=== PATIENT | female | born 1955 | race Caucasian/White ===

== ENCOUNTER 2022-02-15 20:43 | Emergency (ER) | payer BC, OTHER ==
[~2022-02-15] VITALS: Ht 165.1 cm; Wt 45.4 kg
[2022-02-15 21:34] LABS: Eosinophils # (auto) 0 10 ^3/uL (0-0.8); Lymphocytes # (auto) 0.2 10 ^3/uL (0.4-5.4); Monocytes # (auto) 0.2 10 ^3/uL (0-1.3); Neutrophils # (auto) 2.8 10 ^3/uL (1.6-8.6)
[2022-02-15 21:37] LABS: Basophils # (auto) 0 10 ^3/uL (0-0.2); Basophils % (auto) 1.2 % (0.0-2.0); Eosinophils % (auto) 0.8 % (0.0-7.0); Hematocrit 23.6 % (36.0-46.0); Hemoglobin 7.6 g/dL (12.2-16.2); Lymphocytes % (auto) 7.5 % (10.0-50.0); Mean Corpuscular Hemoglobin 26.3 pg (28.0-32.0); Mean Corpuscular Hgb Conc. 32.4 g/dL (32.0-36.0); Mean Corpuscular Volume 81.1 fL (80.0-100.0); Monocytes % (auto) 6.2 % (0.0-12.0); Neutrophils % (auto) 84.3 % (37.0-80.0); White Blood Cell 3.3 10^3/uL (4.4-10.8)
[2022-02-15 21:54] LABS: Red Cell Distribution Width 25.1 % (11.8-14.3)
[2022-02-15 21:57] LABS: Albumin 2.9 g/dL (3.4-5.0); BUN/Creatinine Ratio 30.4; Calcium 8.3 mg/dL (8.5-10.1); Magnesium 1.9 mg/dL (1.6-2.6)
[2022-02-15 21:59] LABS: Bilirubin, Total 0.1 mg/dL (0.2-1.0)
[2022-02-16 01:35] LABS: Urine Bacteria NONE SEEN /hpf (None Seen); Urine Blood Negative /uL (Negative); Urine Specific Gravity 1.016 (1.001-1.035); Urine WBC 2 /hpf (0 - 5)
[2022-02-16] MEDS ORDERED: ACETAMINOPHEN 325 MG TAB PO ONE (05:00)
[2022-02-16] MEDS ORDERED: ONDA-144 PO (07:25)
[2022-02-16] MEDS ORDERED: PERCOT PO (07:25)
[2022-02-16 07:26] VITALS: BP 104/52
== END 2022-02-16 07:35 | disposition home or self-care (01) ==
LOC: EDBD 20:43 → ER 20:43
DX: S33.5XXA Sprain of ligaments of lumbar spine, initial encounter (principal); R11.2 Nausea with vomiting, unspecified; Z90.710 Acquired absence of both cervix and uterus; Z88.1 Allergy status to other antibiotic agents; Z88.2 Allergy status to sulfonamides; X58.XXXA Exposure to other specified factors, initial encounter; Y93.89 Activity, other specified; Y92.89 Other specified places as the place of occurrence of the external cause; Y99.8 Other external cause status
CPT/HCPCS: 36415; 71045; 74176; 80053; 81001; 83690; 83735; 84484; 85025; 93005

== ENCOUNTER 2022-02-19 05:03 | Inpatient (IN) | payer BC, MEDICARE ==
[~2022-02-19] VITALS: Ht 165.1 cm; Wt 45.0 kg
[~2022-02-19 05:03] MED LIST: ONDA-144 PO; PERCOT PO
[2022-02-19] MEDS ORDERED: SODIUM CHLORIDE 0.9% 1,000 ML IV ONE (07:15)
[2022-02-19] MEDS ORDERED: MORPHINE SULFATE 4 MG/ML SYR/VIAL IV ONE (07:15)
[2022-02-19] MEDS: PROMETHAZINE HCL 25 MG/ML 1ML IV PRN (07:48)
[2022-02-19 08:04] LABS: Basophils # (auto) 0 10 ^3/uL (0-0.2); Eosinophils # (auto) 0 10 ^3/uL (0-0.8); Hemoglobin 8.6 g/dL (12.2-16.2); Lymphocytes # (auto) 0.3 10 ^3/uL (0.4-5.4); Nucleated Red Blood Cells % 0.1 %
[2022-02-19 08:06] LABS: Basophils % (auto) 0.6 % (0.0-2.0); Eosinophils % (auto) 0.2 % (0.0-7.0); Hematocrit 27.1 % (36.0-46.0); Lymphocytes % (auto) 4.6 % (10.0-50.0); Mean Corpuscular Hemoglobin 26.4 pg (28.0-32.0); Mean Corpuscular Hgb Conc. 31.7 g/dL (32.0-36.0); Mean Corpuscular Volume 83.1 fL (80.0-100.0); Monocytes # (auto) 0.3 10 ^3/uL (0-1.3); Monocytes % (auto) 4.8 % (0.0-12.0); Neutrophils # (auto) 5.6 10 ^3/uL (1.6-8.6); Neutrophils % (auto) 89.8 % (37.0-80.0); Red Blood Cells 3.26 10^6/uL (4.0-5.20); White Blood Cell 6.2 10^3/uL (4.4-10.8)
[2022-02-19 08:11] LABS: Red Cell Distribution Width 25.4 % (11.8-14.3)
[2022-02-19 08:24] LABS: Albumin 3.2 g/dL (3.4-5.0); BUN/Creatinine Ratio 35.2; Calcium 8.8 mg/dL (8.5-10.1); Potassium 4.4 mmol/L (3.5-5.1)
[2022-02-19 08:27] LABS: Bilirubin, Total 0.2 mg/dL (0.2-1.0); Total Protein 6.1 g/dL (6.4-8.2)
[2022-02-19 10:22] LABS: Urine Bacteria NONE SEEN /hpf (None Seen); Urine Blood Negative /uL (Negative); Urine Specific Gravity 1.014 (1.001-1.035); Urine WBC 1 /hpf (0 - 5)
[2022-02-19] MEDS ORDERED: NITROGLYCERIN 0.4 MG SL TAB SL PRN (10:30)
[2022-02-19] MEDS ORDERED: MORPHINE SULFATE INJECTION 2 MG/ML SYRG IV PRN ×2 (10:30→13:45)
[2022-02-19] MEDS ORDERED: LACTULOSE 20Gm/30ML SOLN PO PRN (13:45)
[2022-02-19] MEDS ORDERED: HYDROcodone-ACET 5/325MG TAB PO ONE (13:45)
[2022-02-19] MEDS ORDERED: hydrALAZINE HCL 20 MG/ML VL IV PRN (13:45)
[2022-02-19] MEDS ORDERED: AZTREONAM 1GM INJ 1 GM in D5W 5% 50 ML IV ONE (13:45)
[2022-02-19] MEDS ORDERED: metroNIDAZOLE 500MG/100ML 100 ML IV ONE (13:45)
[2022-02-19] MEDS ORDERED: IPRATROPIUM BROM 0.5 MG/2.5ML INH SOL NEB ONE (13:45)
[2022-02-19] MEDS ORDERED: ACETAMINOPHEN 325 MG TAB PO PRN (13:45)
[2022-02-19] MEDS ORDERED: LORazepam 0.5 MG TAB PO PRN (13:45)
[2022-02-19] MEDS ORDERED: FAMOTIDINE (10MG/ML) 2ML VL IV ONE (13:45)
[2022-02-19] MEDS ORDERED: DOCUSATE SOD 100 MG CAP PO PRN (13:45)
[2022-02-19] MEDS ORDERED: IPRATROPIUM BROM 0.5 MG/2.5ML INH SOL NEB SCH ×2 (14:00→22:00)
[2022-02-19] MEDS: SODIUM CHLORIDE 0.9% 1,000 ML IV SCH (14:12)
[2022-02-19] MEDS: metroNIDAZOLE 500MG/100ML 100 ML IV SCH (15:00)
[2022-02-19 16:02] LABS: Magnesium 2.1 mg/dL (1.6-2.6); Phosphorus 2.6 mg/dL (2.5-4.90)
[2022-02-19] MEDS: AZTREONAM 1GM INJ 1 GM in D5W 5% 50 ML IV SCH ×2 (16:30→22:59)
[2022-02-19 17:00] VITALS: BP 145/58
[2022-02-19 22:00] VITALS: BP 126/49
[2022-02-19] MEDS: ATORVASTATIN 20 MG TAB PO SCH (23:07)
[2022-02-20] MEDS: metroNIDAZOLE 500MG/100ML 100 ML IV SCH ×4 (00:02→23:28)
[2022-02-20 05:00] VITALS: BP 124/51
[2022-02-20] MEDS: AZTREONAM 1GM INJ 1 GM in D5W 5% 50 ML IV SCH (05:57)
[2022-02-20] MEDS: HYDROcodone-ACET 5/325MG TAB PO PRN (05:58)
[2022-02-20] MEDS: SODIUM CHLORIDE 0.9% 1,000 ML IV SCH (05:58)
[2022-02-20 06:43] LABS: Basophils # (auto) 0 10 ^3/uL (0-0.2); Eosinophils # (auto) 0 10 ^3/uL (0-0.8); Eosinophils % (auto) 0.5 % (0.0-7.0); Hematocrit 27.9 % (36.0-46.0); Monocytes # (auto) 0.5 10 ^3/uL (0-1.3); Neutrophils # (auto) 4.5 10 ^3/uL (1.6-8.6); Neutrophils % (auto) 83.4 % (37.0-80.0); White Blood Cell 5.4 10^3/uL (4.4-10.8)
[2022-02-20 06:46] LABS: Basophils % (auto) 0.4 % (0.0-2.0); Hemoglobin 9.1 g/dL (12.2-16.2); Lymphocytes # (auto) 0.4 10 ^3/uL (0.4-5.4); Mean Corpuscular Hemoglobin 27.2 pg (28.0-32.0); Mean Corpuscular Hgb Conc. 32.5 g/dL (32.0-36.0); Mean Corpuscular Volume 83.6 fL (80.0-100.0); Monocytes % (auto) 8.7 % (0.0-12.0); Red Blood Cells 3.34 10^6/uL (4.0-5.20)
[2022-02-20 06:52] LABS: INR 1.02 (0.9-1.15); Partial Thromboplastin Time 28.7 sec (23.6-33.0)
[2022-02-20 06:53] LABS: Red Cell Distribution Width 25.9 % (11.8-14.3)
[2022-02-20 07:04] LABS: Magnesium 1.9 mg/dL (1.6-2.6); Potassium 3.8 mmol/L (3.5-5.1)
[2022-02-20 07:05] LABS: % Iron Saturation 5.4 % (15-50)
[2022-02-20 07:21] LABS: Albumin 2.8 g/dL (3.4-5.0); BUN/Creatinine Ratio 18.5; Bilirubin, Total 0.5 mg/dL (0.2-1.0); CRP High Sensitivity 4.96 mg/dL (< 0.3); Calcium 8.5 mg/dL (8.5-10.1); Total Protein 6.2 g/dL (6.4-8.2); Uric Acid 2.4 mg/dL (2.6-6.0)
[2022-02-20 07:38] LABS: Thyroid Stimulating Hormone 1.21 uIU/mL (0.358-3.74)
[2022-02-20 09:00] VITALS: BP 111/45
[2022-02-20] MEDS: THIAMINE HCL 100 MG TAB PO SCH (09:50)
[2022-02-20] MEDS: FLUoxetine HCL 20 MG CAP PO SCH (09:51)
[2022-02-20] MEDS: ENOXAPARIN SOD 40 MG/0.4 ML SYRINGE SC SCH (10:00)
[2022-02-20] MEDS ORDERED: FAMOTIDINE (10MG/ML) 2ML VL IV SCH (10:00)
[2022-02-20] MEDS: ASPirin 81 mg TAB PO SCH (10:00)
[2022-02-20 13:00] VITALS: BP 120/42
[2022-02-20] MEDS: CIPROFLOXACIN 400MG/200ML 200 ML IV SCH (16:11)
[2022-02-20 17:00] VITALS: BP 111/46
[2022-02-20] MEDS ORDERED: POTASSIUM PHOSPHATE 26.4 MEQ in SODIUM CHL 0.9% 100 ML IV ONE (17:30)
[2022-02-20 22:00] VITALS: BP 120/47
[2022-02-21] MEDS: ATORVASTATIN 20 MG TAB PO SCH ×2 (00:11→21:44)
[2022-02-21] MEDS: MAGNESIUM SULFATE 1GM/100ML 100 ML IV SCH ×2 (00:48→02:19)
[2022-02-21] MEDS: ONDANSETRON HCL 4 MG/2 ML VIAL IV PRN (02:20)
[2022-02-21] MEDS: CIPROFLOXACIN 400MG/200ML 200 ML IV SCH ×2 (04:05→16:00)
[2022-02-21 05:00] VITALS: BP 120/47
[2022-02-21] MEDS: PROMETHAZINE HCL 25 MG/ML 1ML IV PRN (05:51)
[2022-02-21 06:43] LABS: Potassium 3.2 mmol/L (3.5-5.1)
[2022-02-21 06:44] LABS: Basophils # (auto) 0 10 ^3/uL (0-0.2); Eosinophils # (auto) 0.1 10 ^3/uL (0-0.8); Lymphocytes # (auto) 0.3 10 ^3/uL (0.4-5.4); Monocytes # (auto) 0.4 10 ^3/uL (0-1.3); Neutrophils # (auto) 3.5 10 ^3/uL (1.6-8.6); Nucleated Red Blood Cells % 0.1 %
[2022-02-21 06:47] LABS: Basophils % (auto) 0.8 % (0.0-2.0); Eosinophils % (auto) 1.8 % (0.0-7.0); Hematocrit 24.4 % (36.0-46.0); Hemoglobin 7.8 g/dL (12.2-16.2); Lymphocytes % (auto) 8.1 % (10.0-50.0); Mean Corpuscular Hemoglobin 27.2 pg (28.0-32.0); Neutrophils % (auto) 80.3 % (37.0-80.0); Red Blood Cells 2.88 10^6/uL (4.0-5.20); White Blood Cell 4.3 10^3/uL (4.4-10.8)
[2022-02-21 06:48] LABS: Red Cell Distribution Width 25.5 % (11.8-14.3)
[2022-02-21 06:49] LABS: Calcium 7.6 mg/dL (8.5-10.1); Magnesium 3.1 mg/dL (1.6-2.6)
[2022-02-21] MEDS: metroNIDAZOLE 500MG/100ML 100 ML IV SCH ×3 (07:16→22:49)
[2022-02-21 09:00] VITALS: BP 115/36
[2022-02-21] MEDS: ASPirin 81 mg TAB PO SCH (10:00)
[2022-02-21] MEDS: THIAMINE HCL 100 MG TAB PO SCH (10:00)
[2022-02-21] MEDS: FLUoxetine HCL 20 MG CAP PO SCH (10:00)
[2022-02-21] MEDS: ENOXAPARIN SOD 40 MG/0.4 ML SYRINGE SC SCH (10:00)
[2022-02-21] MEDS ORDERED: POTASSIUM CHL 20MEQ/100ML 100 ML IV SCH (12:30)
[2022-02-21] MEDS: HYDROcodone-ACET 5/325MG TAB PO PRN ×2 (13:28→21:44)
[2022-02-21] MEDS ORDERED: FAMOTIDINE (10MG/ML) 2ML VL IV ONE (13:44)
[2022-02-21] MEDS ORDERED: SUCCINYLCHOLINE CHLORIDE 20 MG/ML 10ML VIAL IV ONE (13:44)
[2022-02-21] MEDS ORDERED: ROCURONIUM 10MG/ML 10ML VIAL IV ONE (13:44)
[2022-02-21] MEDS ORDERED: MIDAZOLAM HCL 2MG/2ML 2ml VIAL (1mg/ml) ONE (13:45)
[2022-02-21] MEDS ORDERED: HYDROmorphone HCL 2 MG/ML VL ONE (13:45)
[2022-02-21] MEDS ORDERED: fentaNYL CITRATE 100 MCG/2 ML VL ONE (13:45)
[2022-02-21] MEDS ORDERED: ONDANSETRON HCL 4 MG/2 ML VIAL ONE (13:46)
[2022-02-21] MEDS ORDERED: DexAMETHasone SOD PHOS 10MG/1ML VIAL INJ ONE (13:46)
[2022-02-21] MEDS ORDERED: ePHEDrine SULFATE 50 MG/ML AMP ONE (13:46)
[2022-02-21] MEDS ORDERED: PROPOFOL 10 MG/ML 20 ML IV ONE (13:46)
[2022-02-21] MEDS ORDERED: LIDOCAINE 2% (LOCAL ANESTH.) PF 5ml SDV ONE (13:46)
[2022-02-21] MEDS ORDERED: PHENYLEPHRINE HCL 10 MG/ML VL ONE (13:46)
[2022-02-21] MEDS ORDERED: KETOROLAC TROMETH 30 MG/ML 1ML VIAL ONE (13:46)
[2022-02-21] MEDS ORDERED: GLYCOPYRROLATE 0.2 MG/ML 1ML VIAL ONE (13:46)
[2022-02-21] MEDS ORDERED: levoFLOXacin 500MG 100 ML IV ONE (14:07)
[2022-02-21] MEDS ORDERED: BUPIVACAINE W/ EPINEPH 0.25% INJ 50ML MDV ONE (14:32)
[2022-02-21] MEDS ORDERED: POVIDONE IODINE 10 % TOPICAL OINT 30GM TOP ONE (15:33)
[2022-02-21] MEDS ORDERED: ONDANSETRON HCL 4 MG/2 ML VIAL IV PRN (16:00)
[2022-02-21] MEDS ORDERED: HYDROmorphone HCL 2 MG/ML VL IV PRN (16:00)
[2022-02-21 20:00] VITALS: BP 107/42
[2022-02-21 21:55] VITALS: BP 107/42
[2022-02-22] VITALS (10 sets, daily range): BP systolic 96–113; BP diastolic 41–75
[2022-02-22] MEDS: CIPROFLOXACIN 400MG/200ML 200 ML IV SCH ×2 (03:49→18:00)
[2022-02-22 05:57] LABS: Basophils # (auto) 0 10 ^3/uL (0-0.2); Eosinophils # (auto) 0 10 ^3/uL (0-0.8); Hematocrit 22.6 % (36.0-46.0); Lymphocytes # (auto) 0.2 10 ^3/uL (0.4-5.4); Mean Corpuscular Volume 85.3 fL (80.0-100.0); Neutrophils # (auto) 3.7 10 ^3/uL (1.6-8.6); Red Blood Cells 2.65 10^6/uL (4.0-5.20)
[2022-02-22 06:00] LABS: Basophils % (auto) 0.1 % (0.0-2.0); Eosinophils % (auto) 0.1 % (0.0-7.0); Hemoglobin 7.1 g/dL (12.2-16.2); Lymphocytes % (auto) 4.4 % (10.0-50.0); Mean Corpuscular Hgb Conc. 31.6 g/dL (32.0-36.0); Monocytes # (auto) 0.2 10 ^3/uL (0-1.3); Monocytes % (auto) 5.7 % (0.0-12.0); Neutrophils % (auto) 89.7 % (37.0-80.0); Nucleated Red Blood Cells % 0.2 %; White Blood Cell 4.1 10^3/uL (4.4-10.8)
[2022-02-22 06:14] LABS: Albumin 2.1 g/dL (3.4-5.0); Potassium 4.2 mmol/L (3.5-5.1)
[2022-02-22 06:15] LABS: Red Cell Distribution Width 25.7 % (11.8-14.3)
[2022-02-22 06:19] LABS: BUN/Creatinine Ratio 38.2; Bilirubin, Total 0.2 mg/dL (0.2-1.0); Calcium 7.6 mg/dL (8.5-10.1); Total Protein 4.9 g/dL (6.4-8.2)
[2022-02-22] MEDS: metroNIDAZOLE 500MG/100ML 100 ML IV SCH ×3 (06:40→22:41)
[2022-02-22] MEDS: HYDROcodone-ACET 5/325MG TAB PO PRN ×3 (09:49→22:41)
[2022-02-22] MEDS: THIAMINE HCL 100 MG TAB PO SCH (09:50)
[2022-02-22] MEDS: FLUoxetine HCL 20 MG CAP PO SCH (09:50)
[2022-02-22] MEDS: ASPirin 81 mg TAB PO SCH (09:56)
[2022-02-22] MEDS: ENOXAPARIN SOD 40 MG/0.4 ML SYRINGE SC SCH (09:56)
[2022-02-22 10:54] LABS: % Iron Saturation 8.4 % (15-50)
[2022-02-22 21:09] LABS: Ferritin 112.4 ng/mL (10-322); Folate (Folic Acid) > 24.00 ng/mL (5.38-24)
[2022-02-22] MEDS: DOCUSATE SOD 100 MG CAP PO SCH (21:38)
[2022-02-22] MEDS: ATORVASTATIN 20 MG TAB PO SCH (21:38)
[2022-02-23] MEDS: CIPROFLOXACIN 400MG/200ML 200 ML IV SCH ×2 (03:44→16:19)
[2022-02-23] MEDS: HYDROcodone-ACET 5/325MG TAB PO PRN ×2 (04:43→21:37)
[2022-02-23] MEDS: PROMETHAZINE HCL 25 MG/ML 1ML IV PRN ×2 (04:43→18:31)
[2022-02-23 05:48] VITALS: BP 110/47
[2022-02-23] MEDS: metroNIDAZOLE 500MG/100ML 100 ML IV SCH ×3 (06:55→22:39)
[2022-02-23 09:00] VITALS: BP 111/45
[2022-02-23] MEDS: ASPirin 81 mg TAB PO SCH (10:00)
[2022-02-23] MEDS: FLUoxetine HCL 20 MG CAP PO SCH (10:00)
[2022-02-23] MEDS: DOCUSATE SOD 100 MG CAP PO SCH ×2 (10:00→21:36)
[2022-02-23] MEDS: ENOXAPARIN SOD 40 MG/0.4 ML SYRINGE SC SCH (10:00)
[2022-02-23] MEDS: THIAMINE HCL 100 MG TAB PO SCH (10:22)
[2022-02-23] MEDS: ONDANSETRON HCL 4 MG/2 ML VIAL IV PRN ×2 (10:22→16:46)
[2022-02-23 13:00] VITALS: BP 128/56
[2022-02-23] MEDS ORDERED: LOPERAMIDE HCL 2 MG CAP/TAB PO ONE (15:15)
[2022-02-23 17:00] VITALS: BP 130/57
[2022-02-23] MEDS: ATORVASTATIN 20 MG TAB PO SCH (21:37)
[2022-02-23 22:00] VITALS: BP 102/44
[2022-02-24] MEDS: CIPROFLOXACIN 400MG/200ML 200 ML IV SCH ×2 (03:21→16:00)
[2022-02-24 04:57] VITALS: BP 105/54
[2022-02-24] MEDS: metroNIDAZOLE 500MG/100ML 100 ML IV SCH ×3 (06:17→22:56)
[2022-02-24 09:00] VITALS: BP 111/50
[2022-02-24] MEDS ORDERED: ERGOCALCIFEROL 50,000 UNIT(1.25MG) CAP PO SCH (09:30)
[2022-02-24] MEDS: FLUoxetine HCL 20 MG CAP PO SCH (10:00)
[2022-02-24] MEDS: ASPirin 81 mg TAB PO SCH (10:00)
[2022-02-24] MEDS: DOCUSATE SOD 100 MG CAP PO SCH ×2 (10:00→21:30)
[2022-02-24] MEDS: ENOXAPARIN SOD 40 MG/0.4 ML SYRINGE SC SCH (10:00)
[2022-02-24 10:21] LABS: Basophils # (auto) 0 10 ^3/uL (0-0.2); Eosinophils # (auto) 0.1 10 ^3/uL (0-0.8); Lymphocytes # (auto) 0.3 10 ^3/uL (0.4-5.4); Neutrophils # (auto) 2.2 10 ^3/uL (1.6-8.6)
[2022-02-24 10:23] LABS: Basophils % (auto) 0.6 % (0.0-2.0); Hematocrit 30.3 % (36.0-46.0); Hemoglobin 9.3 g/dL (12.2-16.2); Mean Corpuscular Hgb Conc. 30.7 g/dL (32.0-36.0); Mean Corpuscular Volume 84.6 fL (80.0-100.0); Monocytes # (auto) 0.3 10 ^3/uL (0-1.3); Monocytes % (auto) 11.2 % (0.0-12.0); Neutrophils % (auto) 74.2 % (37.0-80.0); Nucleated Red Blood Cells % 0.1 %; Red Blood Cells 3.58 10^6/uL (4.0-5.20); White Blood Cell 2.9 10^3/uL (4.4-10.8)
[2022-02-24 10:28] LABS: Red Cell Distribution Width 24.2 % (11.8-14.3)
[2022-02-24] MEDS: THIAMINE HCL 100 MG TAB PO SCH (10:46)
[2022-02-24 10:50] LABS: Albumin 2.2 g/dL (3.4-5.0); Potassium 3.3 mmol/L (3.5-5.1)
[2022-02-24 10:53] LABS: BUN/Creatinine Ratio 14.3; Bilirubin, Total 0.2 mg/dL (0.2-1.0); Total Protein 5.3 g/dL (6.4-8.2)
[2022-02-24] MEDS ORDERED: POTASSIUM CHL 20 Meq TABLET PO ONE (12:00)
[2022-02-24 13:00] VITALS: BP 112/47
[2022-02-24 17:00] VITALS: BP 117/68
[2022-02-24 20:00] VITALS: BP 103/61
[2022-02-24] MEDS ORDERED: LOPERAMIDE HCL 2 MG CAP/TAB PO ONE (20:00)
[2022-02-24] MEDS: ATORVASTATIN 20 MG TAB PO SCH (21:30)
[2022-02-25] MEDS: CIPROFLOXACIN 400MG/200ML 200 ML IV SCH ×2 (03:19→16:00)
[2022-02-25 05:03] VITALS: BP 107/57
[2022-02-25 05:05] LABS: Basophils # (auto) 0 10 ^3/uL (0-0.2); Basophils % (auto) 0.7 % (0.0-2.0); Eosinophils # (auto) 0.1 10 ^3/uL (0-0.8); Eosinophils % (auto) 3.5 % (0.0-7.0); Hematocrit 31.1 % (36.0-46.0); Lymphocytes # (auto) 0.4 10 ^3/uL (0.4-5.4); Mean Corpuscular Hemoglobin 27.4 pg (28.0-32.0); Mean Corpuscular Hgb Conc. 32.2 g/dL (32.0-36.0); Monocytes # (auto) 0.4 10 ^3/uL (0-1.3); Monocytes % (auto) 12.2 % (0.0-12.0); Neutrophils # (auto) 2.2 10 ^3/uL (1.6-8.6); Neutrophils % (auto) 69.6 % (37.0-80.0); Nucleated Red Blood Cells % 0.1 %; Red Blood Cells 3.66 10^6/uL (4.0-5.20); White Blood Cell 3.1 10^3/uL (4.4-10.8)
[2022-02-25 05:13] LABS: Red Cell Distribution Width 24.5 % (11.8-14.3)
[2022-02-25 05:24] LABS: BUN/Creatinine Ratio 28.9; Calcium 8.3 mg/dL (8.5-10.1); Phosphorus 1.8 mg/dL (2.5-4.90); Potassium 4.8 mmol/L (3.5-5.1)
[2022-02-25 06:00] VITALS: BP 100/52
[2022-02-25] MEDS: metroNIDAZOLE 500MG/100ML 100 ML IV SCH ×2 (06:02→14:25)
[2022-02-25 08:00] VITALS: BP 102/53
[2022-02-25] MEDS: ENOXAPARIN SOD 40 MG/0.4 ML SYRINGE SC SCH (10:35)
[2022-02-25] MEDS: FLUoxetine HCL 20 MG CAP PO SCH (10:35)
[2022-02-25] MEDS: DOCUSATE SOD 100 MG CAP PO SCH (10:35)
[2022-02-25] MEDS: ASPirin 81 mg TAB PO SCH (10:35)
[2022-02-25] MEDS: THIAMINE HCL 100 MG TAB PO SCH (10:35)
[2022-02-25 12:00] VITALS: BP 120/56
[2022-02-25] MEDS ORDERED: POTASSIUM PHOSPHATE 26.4 MEQ in SODIUM CHL 0.9% 100 ML IV ONE (14:15)
[2022-02-25] MEDS ORDERED: SODIUM PHOSPH 24MEQ(18MMOL) IN NS 100 ML IV ONE (15:30)
[2022-02-25 15:36] VITALS: BP 120/56
[2022-02-25] MEDS ORDERED: NEUTRA-PHOS TABLET PO ONE (16:45)
== END 2022-02-25 17:46 | disposition home or self-care (01) | DRG 417 ==
LOC: EDBD 05:03 → ER 05:03 → OVERFLOW 10:30 → WEST WING 14:57
PROVIDERS: ADMIT Hospitalist; ATTEND Internal Medicine
PROC: 0FT44ZZ Resection of Gallbladder, Percutaneous Endoscopic Approach (ICD-10-PCS; principal; 2022-02-21 14:38)
PROC: 30233N1 Transfusion of Nonautologous Red Blood Cells into Peripheral Vein, Percutaneous Approach (ICD-10-PCS; 2022-02-22)
DX: K80.00 Calculus of gallbladder with acute cholecystitis without obstruction (principal); S72.001A Fracture of unspecified part of neck of right femur, initial encounter for closed fracture; F11.20 Opioid dependence, uncomplicated; R64 Cachexia; Z68.1 Body mass index [BMI] 19.9 or less, adult; D50.9 Iron deficiency anemia, unspecified; E55.9 Vitamin D deficiency, unspecified; E78.5 Hyperlipidemia, unspecified; F32.9 Major depressive disorder, single episode, unspecified; I10 Essential (primary) hypertension; I25.10 Atherosclerotic heart disease of native coronary artery without angina pectoris; R00.1 Bradycardia, unspecified; Z20.822 Contact with and (suspected) exposure to COVID-19; K59.04 Chronic idiopathic constipation; W01.0XXA Fall on same level from slipping, tripping and stumbling without subsequent striking against object, initial encounter; Y93.01 Activity, walking, marching and hiking; M19.90 Unspecified osteoarthritis, unspecified site; R62.7 Adult failure to thrive; S33.5XXA Sprain of ligaments of lumbar spine, initial encounter; Z85.41 Personal history of malignant neoplasm of cervix uteri; Z92.3 Personal history of irradiation; Z90.710 Acquired absence of both cervix and uterus; Z88.1 Allergy status to other antibiotic agents; Z88.8 Allergy status to other drugs, medicaments and biological substances; Y92.098 Other place in other non-institutional residence as the place of occurrence of the external cause; Y99.8 Other external cause status
CPT/HCPCS: 36415; 71045; 73020; 73502; 73560; 74176; 76705; 78226; 80048; 80053; 80061; 81001; 82306; 82550; 82607; 82728; 82746; 83036; 83540; 83550; 83615; 83690; 83735; 83880; 84100; 84443; 84484; 84550; 85025; 85045; 85379; 85610; 85652; 85730; 86141; 86850; 86900; 86901; 86920; 87040; 87086; 93005; 96361; 96374; 96375; G0378; J0330; J1100; J1885; J1956; J2001; J2250; J2405; J2704; J3480; J3490; J7060

== ENCOUNTER → 2022-05-24 | Outpatient (CLI) | payer BC ==
[2022-05-24 07:45] LABS: Basophils # (auto) 0 10 ^3/uL (0-0.2); Basophils % (auto) 0.9 % (0.0-2.0); Eosinophils # (auto) 0 10 ^3/uL (0-0.8); Eosinophils % (auto) 1.1 % (0.0-7.0); Hematocrit 36.6 % (36.0-46.0); Hemoglobin 11.7 g/dL (12.2-16.2); Lymphocytes # (auto) 0.5 10 ^3/uL (0.4-5.4); Lymphocytes % (auto) 16.8 % (10.0-50.0); Mean Corpuscular Hgb Conc. 31.8 g/dL (32.0-36.0); Mean Corpuscular Volume 94.2 fL (80.0-100.0); Monocytes # (auto) 0.3 10 ^3/uL (0-1.3); Monocytes % (auto) 11.5 % (0.0-12.0); Neutrophils # (auto) 2.1 10 ^3/uL (1.6-8.6); Neutrophils % (auto) 69.7 % (37.0-80.0); Red Blood Cells 3.89 10^6/uL (4.0-5.20); Red Cell Distribution Width 17.7 % (11.8-14.3)
[2022-05-24 09:11] LABS: BUN/Creatinine Ratio 40.4; Bilirubin, Total 0.3 mg/dL (0.2-1.0); Calcium 8.6 mg/dL (8.5-10.1); Potassium 4.4 mmol/L (3.5-5.1); Total Protein 6.3 g/dL (6.4-8.2)
[2022-05-24 09:14] LABS: % Iron Saturation 15.1 % (15-50)
== END | disposition home or self-care (01) ==
LOC: LAB 07:22
PROVIDERS: ATTEND Internal Medicine
DX: D64.9 Anemia, unspecified (principal); Z87.19 Personal history of other diseases of the digestive system
CPT/HCPCS: 36415; 80053; 82728; 83540; 83550; 83615; 85025